=== PATIENT | male | born 1990 | race African-American/Black ===

== ENCOUNTER 2018-01-07 14:23 | Emergency (ER) | payer MEDICAID, OTHER ==
[~2018-01-07] VITALS: Ht 180.3 cm; Wt 86.2 kg
[2018-01-07 14:48] VITALS: BP 116/77
[2018-01-07] MEDS ORDERED: BACITRACIN15 GM TOPIC (15:38)
[2018-01-07] MEDS ORDERED: AUGMENTIN 875-1 EAC1 ORAL (15:38)
[2018-01-07] MEDS ORDERED: IBUPROFEN600 MG ORAL (15:38)
[2018-01-07] MEDS ORDERED: Augmentin 875mg Tab ORAL ONE (15:45)
[2018-01-07] MEDS ORDERED: Bacitracin Oint UD TOPIC ONE (15:45)
[2018-01-07] MEDS ORDERED: Tetanus/Diptheria/Pertussis Vaccine 0.5ml Syr IM ONE (15:45)
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
[2018-01-07 18:36] VITALS: BP 116/77
== END 2018-01-07 16:00 | disposition home or self-care (01) ==
LOC: EMR 15:33
DX: S40.021A Contusion of right upper arm, initial encounter (principal); W50.3XXA Accidental bite by another person, initial encounter; Y92.9 Unspecified place or not applicable; Z23 Encounter for immunization
CPT/HCPCS: 90471; 90715; 96372; 99284

== ENCOUNTER 2018-06-11 14:18 | Emergency (ER) | payer MEDICAID ==
[~2018-06-11] VITALS: Ht 188 cm; Wt 99.3 kg
[~2018-06-11 14:18] MED LIST: AUGMENTIN 875-1 EAC1 ORAL; BACITRACIN15 GM TOPIC; IBUPROFEN600 MG ORAL
[2018-06-11] MEDS ORDERED: TYLENOL EXTRA500 MG ORAL (14:58)
[2018-06-11] MEDS ORDERED: TAMIFLU75 MG ORAL (14:58)
[2018-06-11] MEDS ORDERED: CLARITIN-D 121 EAC1 ORAL (14:59)
--- NOTE | 2018-06-11 14:59 | Emergency Room Report ---
History of Present Illness General Chief Complaint: Flu Like Symptoms Source: Patient Present Illness HPI 28-year-old male patient presents to ER complaining of flulike symptoms for the past 2 days. Patient reports "feels sick", complains of subjective fever at home, afebrile in ER, no chills, no diarrhea. Denies chest pain, shortness of breath, cough, abdominal pain. reports receive flu shot this year. Reports sick contacts at home with flulike symptoms. Also states he has been having difficulty sleeping for the past 2 weeks due to stress, requesting medication to help him sleep. Reports history of marijuana use. Allergies: Coded Allergies: No Known Allergies (Unverified , 01/07/18) Patient History Past Medical History: see triage record Reviewed Nursing Documentation: PMH: Agreed; PSxH: Agreed Nursing Documentation-PMH Past Medical History: No Stated History Review of Systems All Other Systems: negative except mentioned in HPI Physical Exam Vital Signs Date Time Temp Pulse Resp B/P (MAP) Pulse Ox O2 Delivery O2 Flow Rate FiO2 06/11/18 14:30 98.1 66 18 123/79 97 Room Air Sp02 EP Interpretation: reviewed, normal General Appearance: well appearing, no apparent distress, alert, GCS 15, non- toxic Head: normocephalic, atraumatic Eyes: bilateral eye normal inspection, bilateral eye PERRL ENT: hearing grossly normal, normal pharynx, no angioedema, normal voice, TMs + canals normal, uvula midline, moist mucus membranes Neck: full range of motion, no bony tend Respiratory: lungs clear, normal breath sounds, no rhonchi, no respiratory distress, no accessory muscle use, no wheezing, speaking full sentences Cardiovascular #1: regular rate, rhythm, no edema Gastrointestinal: non tender, soft, no mass, non-distended, no guarding, no rebound Genitourinary: no CVA tenderness Musculoskeletal: back normal, digits/nails normal, gait/station normal, normal range of motion, non-tender Neurologic: alert, oriented x3, responsive, motor strength/tone normal, sensory intact Psychiatric: mood/affect normal Skin: no rash Lymphatic: no adenopathy Medical Decision Making PA Attestation Dr. Ariza is my supervising Physician whom patient management has been discussed with. Diagnostic Impression: Primary Impression: Influenza-like symptoms ER Course Pt presents to ED c/o "flulike symptoms". DDX considered but are not limited to influenza, viral URI, pneumonia, strep throat, rhinitis, sinusitis, otitis media, otitis externa. VITAL SIGNS are WNL, patient is afebrile. ER COURSE: physical exam benign, no abdominal tenderness to palpation. Lungs clear to auscultation, no wheezes, rhonci or rales. patient afebrile. Low suspicion for pneumonia, will not order CXR at this time. no tonsillar exudates, no pharyngeal erythema, history of cough, no fever, no stridor, uvula midline, low suspicion for peritonsillar abscess. cap refill less than 2 seconds, normal skin turgor, moist mucous members, low suspicion for dehydration. Likely viral etiology of symptoms. Symptomatic treatment. drink plenty of fluids. Salt water gargles for sore throat. Followup with PCP for further treatment and/or referral as needed. advised patient on use of melatonin for difficulty sleeping. Available [id number]. ER precautions given. DISCHARGE: -Rx given for Claritin -Rx given for Tylenol/Acetaminophen -Rx given for Tamiflu for influenza. At this time pt is stable for d/c to home. Patient is resting comfortably, in no acute distress, nontoxic appearing. Patient to take medications as instructed Will provide with patient care instructions and any necessary prescriptions. Care plan and follow-up instructions provided. Patient instructed to follow-up with primary care provider in 3 - 5 days. Patient questions asked and answered. Patient reports understanding and agreement to treatment plan. ER precautions given. Patient instructed to return to ER immediately for any new or worsening of symptoms including but not limited to increasing SOB, persistent fever, intractable vomiting. - Please note that this Emergency Department Report was dictated using [employer] dispatcher technology software, occasionally this can lead to erroneous entry secondary to interpretation by the dictation equipment. Last Vital Signs Date Time Temp Pulse Resp B/P (MAP) Pulse Ox O2 Delivery O2 Flow Rate FiO2 06/11/18 14:40 66 18 Room Air 06/11/18 14:30 98.1 123/79 97 Disposition: HOME, SELF-CARE Condition: Stable Scripts Loratadine/Pseudoephedrine (CLARITIN-D 12 HOUR TABLET) 1 Each Tab.er.12h 1 TAB ORAL EVERY 12 HOURS, #24 TAB Prov: Wilbur Duncan 06/11/18 Oseltamivir Phosphate (Tamiflu) 75 Mg Capsule 75 MG ORAL TWICE A DAY for 7 Days, #14 CAP Prov: Wilbur Duncan 06/11/18 Acetaminophen* (TYLENOL EXTRA STRENGTH*) 500 Mg Tablet 500 MG ORAL Q8H PRN for Prn Headache/Temp > 101, #30 TAB 0 Refills Prov: Wilbur Duncan 06/11/18 Patient Instructions: Influenza, Adult, [id number] Additional Instructions: Followup with primary care provider in 3 -5 days. Take medications as directed. Drink only fluids. Advised patient on supportive care treatment [id number] medications. Advised on use of melatonin for sleep symptoms. Patient questions asked and answered. ER precautions given, patient instructed to return to ER immediately for any new or worsening of symptoms. Wilbur Duncan Jun 11, 2018 14:59
[2018-06-11 15:03] VITALS: BP 120/82
== END 2018-06-11 15:03 | disposition home or self-care (01) ==
LOC: EMR 14:57
DX: J11.1 Influenza due to unidentified influenza virus with other respiratory manifestations (principal)
CPT/HCPCS: 99283

== ENCOUNTER → 2018-10-25 | Emergency (ER) | payer MEDICAID ==
[~2018-10-25] VITALS: Ht 188 cm; Wt 104.3 kg
[~2018-10-25] MED LIST changes: +ALBUTEROL SULF8.5 GM INH; +CLARITIN-D 121 EAC1 ORAL; +NKM; +PROMETHAZINE-C118 M1 ORAL; +TAMIFLU75 MG ORAL; +TYLENOL EXTRA500 MG ORAL; +ZITHROMAX250 MG ORAL
[2018-10-25 15:00] VITALS: BP 121/81
--- NOTE | 2018-10-25 15:55 | Emergency Room Report ---
History of Present Illness General Chief Complaint: Upper Respiratory Illness Source: Patient Present Illness HPI 28 YO Male presents to the ED c/o Cough, 5/[address], and fevers x 3 weeks. Denies chills, ear pain, high fevers, lethargy, neck pain/stiffness, irritability, photophobia dehydration, N/V/D. Denies Cp, Palpitations, LOC, AMS , seizures, paresthesias, or changes in Hearing or vision, no Sudden severe VILLALBA. Denies hx of asthma or COPD. Reports that he smokes marijuana regularly. Allergies: Coded Allergies: No Known Allergies (Unverified , 01/07/18) Patient History Past Medical History: see triage record Past Surgical History: none Pertinent Family History: none Reviewed Nursing Documentation: PMH: Agreed; PSxH: Agreed Nursing Documentation-PMH Past Medical History: No Stated History Review of Systems All Other Systems: negative except mentioned in HPI Physical Exam Vital Signs Date Time Temp Pulse Resp B/P (MAP) Pulse Ox O2 Delivery O2 Flow Rate FiO2 10/25/18 15:00 97.7 84 16 121/81 98 Room Air Sp02 EP Interpretation: reviewed, normal General Appearance: no apparent distress, alert, GCS 15, non-toxic Head: normocephalic, atraumatic Eyes: bilateral eye normal inspection, bilateral eye PERRL ENT: hearing grossly normal, normal voice Neck: full range of motion Respiratory: chest non-tender, lungs clear, speaking full sentences, wheezing - left >right Cardiovascular #1: regular rate, rhythm Musculoskeletal: gait/station normal, normal range of motion, non-tender Neurologic: alert, oriented x3, responsive, motor strength/tone normal, sensory intact, normal gait, speech normal, grossly normal Psychiatric: judgement/insight normal Skin: normal color, no rash, warm/dry, well hydrated Lymphatic: no adenopathy Medical Decision Making PA Attestation Dr. Laureano is my supervising Physician whom patient management has been discussed with. Diagnostic Impression: Primary Impression: Atypical pneumonia ER Course 28 YO Male presents to the ED c/o Cough, 5/[address], and fevers x 3 weeks. Denies chills, ear pain, high fevers, lethargy, neck pain/stiffness, irritability, photophobia dehydration, N/V/D. Denies Cp, Palpitations, LOC, AMS , seizures, paresthesias, or changes in Hearing or vision, no Sudden severe VILLALBA. Denies hx of asthma or COPD. Reports that he smokes marijuana regularly. Ddx considered but are not limited to URI, pneumonia, PE, strep pharyngitis, meningitis. Vital signs: Pt. is afebrile, the remaining VS are WNL H&PE are most consistent with URI- atypical PNA due to length of symptoms ORDERS: none required at this time, the diagnosis is clinical ED INTERVENTIONS: None required at this time. -I do not identify an emergent condition at this time. With current presentation , pt. is stable for close outpatient follow up and conservative treatment. D/ w pt. to return promptly to ED with worsening or new symptoms.- Pt. verbalizes' understanding and agreement with proposed treatment plan.proposed treatment plan. DISCHARGE: At this time pt. is stable for d/c to home. Will provide printed patient care instructions, and any necessary prescriptions. Care plan and follow up instructions have been discussed with the patient prior to discharge. Last Vital Signs Date Time Temp Pulse Resp B/P (MAP) Pulse Ox O2 Delivery O2 Flow Rate FiO2 10/25/18 15:00 97.7 84 16 121/81 98 Room Air Disposition: HOME, SELF-CARE Condition: Stable Scripts Albuterol Sulfate* (ALBUTEROL SULFATE MDI*) 8.5 Gm Hfa.aer.ad 2 PUFF INH Q4H, #1 INH 0 Refills Prov: Christina Feliciano 10/25/18 Azithromycin* (ZITHROMAX*) 250 Mg Tablet 250 MG ORAL DAILY for 5 Days, #6 TAB Prov: Christina Feliciano 10/25/18 Codeine/Promethazine Hcl* (PROMETHAZINE-CODEINE SYRUP*) 118 Ml Syrup 5 ML ORAL Q6H PRN for For Cough, #120 ML 0 Refills Prov: Christina Feliciano 10/25/18 Departure Forms: Return to Work Return to Work Date: Oct 29, 2018 Work Restrictions: None Return to Full Activity: Oct 29, 2018 Patient Instructions: Upper Respiratory Infection, Adult Additional Instructions: Take medications as directed. Follow up with a Primary Care Provider in 3-5 days, even if your symptoms have resolved. --Please review list of primary care clinics, if you do not already have a primary care provider Return sooner to ED if new symptoms occur, or current symptoms become worse. Do not drink alcohol, drive, or operate heavy machinery while taking Cough Syrup as this may cause drowsiness. - Please note that this Emergency Department Report was dictated using [employer] agent technology software, occasionally this can lead to erroneous entry secondary to interpretation by the dictation equipment. Christina Feliciano Oct 25, 2018 15:55
[2018-10-25 16:12] VITALS: BP 127/78
--- NOTE | 2018-10-25 16:20 | NUR ---
Patient was evaluated, treated and discharged with aftercare instructions by MD/PA
== END | disposition home or self-care (01) ==
LOC: EMR 16:14
DX: J18.9 Pneumonia, unspecified organism (principal)
CPT/HCPCS: 99283

== ENCOUNTER 2019-07-02 14:45 | Emergency (ER) | payer MEDICAID ==
[~2019-07-02] VITALS: Ht 188 cm; Wt 102.1 kg
[2019-07-02 15:00] VITALS: BP 108/70
--- NOTE | 2019-07-02 15:00 | NUR ---
ED Nurse Note: Patient arrived at ED by car from home complaining of cough and cold s/s x 1 week.
--- NOTE | 2019-07-02 15:40 | Emergency Room Report ---
History of Present Illness General Chief Complaint: Flu Like Symptoms Source: Patient Present Illness HPI 29-year-old male with no symptom past medical history here complaining of 2 weeks of cough and congestion. Patient reports that his symptoms started with sore throat and chills, now he has this productive cough with phlegm production. Denies wheezing at this time, denies chest pain shortness of breath. Has taken pjra-mpe-[id number] medication with minimal relief. Patient asks multiple times for the same cough syrup that was given to him last time as that is the only thing that helps him sleep and feels better. When told that regular Phenergan and Phenergan DM will be prescribed patient is asking for Phenergan with codeine however agrees to take Phenergan DM instead. I explained to patient that since he is not a chronic smoker, and has no chronic cough is not indicated to write for Phenergan with codeine. Patient denies any recent travel, reports he is up-to-date with exertion. Is sitting comfortably with stable vital signs. Allergies: Coded Allergies: No Known Allergies (Unverified , 01/07/18) Patient History Past Medical History: see triage record Past Surgical History: none Pertinent Family History: none Social History: Reports: drug use - marijuana Immunizations: UTD Reviewed Nursing Documentation: PMH: Agreed; PSxH: Agreed Nursing Documentation-PMH Past Medical History: No Stated History Review of Systems All Other Systems: negative except mentioned in HPI Physical Exam Vital Signs Date Time Temp Pulse Resp B/P (MAP) Pulse Ox O2 Delivery O2 Flow Rate FiO2 07/02/19 14:56 98.2 118 22 108/70 (83) 96 Room Air Sp02 EP Interpretation: reviewed, normal General Appearance: no apparent distress, alert, GCS 15, non-toxic Head: normocephalic, atraumatic Eyes: bilateral eye normal inspection, bilateral eye PERRL ENT: hearing grossly normal, normal pharynx, no angioedema, normal voice Neck: full range of motion, supple/symm/no masses Respiratory: chest non-tender, lungs clear, normal breath sounds, no rhonchi, no respiratory distress, no retraction, no accessory muscle use, no wheezing, speaking full sentences Cardiovascular #1: regular rate, rhythm, no edema, no murmur Gastrointestinal: non tender, soft, no mass, no bruit Genitourinary: no CVA tenderness Musculoskeletal: back normal, no calf tenderness Neurologic: alert, motor strength/tone normal, oriented x3, sensory intact, responsive, speech normal Psychiatric: judgement/insight normal, memory normal, mood/affect normal, no suicidal/homicidal ideation Skin: no rash Lymphatic: no adenopathy Medical Decision Making PA Attestation All my diagnosis and treatment plans were reviewed ad discussed with my supervising physician Dr. Ji Diagnostic Impression: Primary Impression: Atypical pneumonia ER Course 29-year-old male with no symptom past medical history here complaining of 2 weeks of cough and congestion. Patient reports that his symptoms started with sore throat and chills, now he has this productive cough with phlegm production. Denies wheezing at this time, denies chest pain shortness of breath. Has taken [id number] medication with minimal relief. Patient asks multiple times for the same cough syrup that was given to him last time as that is the only thing that helps him sleep and feels better. When told that regular Phenergan and Phenergan DM will be prescribed patient is asking for Phenergan with codeine however agrees to take Phenergan DM instead. I explained to patient that since he is not a chronic smoker, and has no chronic cough is not indicated to write for Phenergan with codeine. Patient denies any recent travel, reports he is up-to-date with exertion. Is sitting comfortably with stable vital signs. Ddx considered but are not limited to: atypical Pneumonia, strep pharyngitis, URI, tonsillitis, peritonsillar abscess, influneza Vital signs: are WNL, pt. is afebrile H&PE are most consistent with: Atypical pneumonia ORDERS: Phenergan DM, azithromycin, patient refused to get any albuterol inhaler ED INTERVENTIONS: None required at this time. DISCHARGE: At this time pt. is stable for d/c to home. Will provide printed patient care instructions, and any necessary prescriptions. Care plan and follow up instructions have been discussed with the patient prior to discharge. Patient to follow with her primary care provider, if worsening symptoms return to the emergency room Last Vital Signs Date Time Temp Pulse Resp B/P (MAP) Pulse Ox O2 Delivery O2 Flow Rate FiO2 07/02/19 14:56 98.2 118 22 108/70 (83) 96 Room Air Disposition: HOME, SELF-CARE Condition: Stable Scripts D-Methorphan Hb/Prometh Hcl* (PROMETHAZINE-DM SYRUP*) 118 Ml Syrup 5 ML ORAL Q6H PRN for For Cough, #200 ML 0 Refills Prov: Ana Feng 07/02/19 Azithromycin* (ZITHROMAX*) 250 Mg Tablet 250 MG ORAL DAILY, #6 TAB 0 Refills Take two tables once daily for 1 day, then one tablet once daily for 4 days. Prov: nAa Feng 07/02/19 Patient Instructions: Upper Respiratory Infection, Adult, [id number] Additional Instructions: Take medication as directed, follow-up with her primary care provider, if worsening symptoms return to the emergency room Ana Fneg Jul 02, 2019 15:39
[2019-07-02] MEDS ORDERED: ZITHROMAX250 MG ORAL (15:41)
[2019-07-02] MEDS ORDERED: PROMETHAZINE-D118 ML ORAL (15:41)
[2019-07-02 15:47] VITALS: BP 108/70
--- NOTE | 2019-07-02 15:47 | NUR ---
ER DISCHARGE NOTE: Patient is cleared to be discharged per ERMD. Patient is AxO x 4, VSS Patient verbalized understanding of medication and discharge instructions. ID band removed. Patient is able to ambulate with steady gait and took all belongings.
== END 2019-07-02 15:47 | disposition home or self-care (01) ==
LOC: EMR 15:39
DX: J18.9 Pneumonia, unspecified organism (principal)
CPT/HCPCS: 99282